=== PATIENT | female | born 1990 | race American Indian/Alaskan Native ===

== ENCOUNTER 2021-09-13 19:06 | Emergency (ER) | payer SELFPAY ==
[2021-09-13 20:12] LABS: Bacteria,Urine 1+ /HPF (Negative); Mucus,Urine FEW /HPF
[2021-09-13 20:27] LABS: Bilirubin,Urine Negative (Negative); Blood,Urine Negative (Negative); Color,Urine Yellow (Yellow); Urobilinogen,Urine < 2.0 mg/dL (<2.0)
[2021-09-14] MEDS ORDERED: ONDANSETRON 4 MG/2 ML INJ IV ONE (02:05)
[2021-09-14] MEDS ORDERED: SODIUM CHLORIDE 0.9% 1000 ML 1,000 ML IV ONE (02:05)
--- NOTE | 2021-09-14 02:17 | Emergency Department Report ---
ED Abdominal Pain HPI - General Chief Complaint: Abdominal Pain Stated Complaint: KIDNEY PAIN Time Seen by Provider: 09/14/21 02:04 Source: patient Mode of arrival: Ambulatory Limitations: No Limitations - History of Present Illness Initial Comments: Pleasant 30-year-old female who presents for left lateral flank pain with radiation to suprapubic x1 week. Symptoms include nausea vomiting chills urinary frequency. Last menstrual cycle was 3 weeks ago. Is been no fevers no chills Symptoms are exacerbated by movement and bending. Symptoms are relieved by nothing tried. Patient denies hematuria MD Complaint: flank pain - Related Data Allergies Allergy/AdvReac Type Severity Reaction Status Date / Time No Known Allergies Allergy Verified 09/13/21 19:48 ED Review of Systems ROS: Stated complaint: KIDNEY PAIN Other details as noted in HPI Constitutional: denies: chills, fever Eyes: denies: eye pain, eye discharge, vision change ENT: denies: ear pain, throat pain Respiratory: denies: cough, shortness of breath, wheezing Cardiovascular: denies: chest pain, palpitations Endocrine: no symptoms reported Gastrointestinal: abdominal pain, nausea, vomiting (Left flank). denies: diarrhea, constipation Genitourinary: denies: urgency, dysuria, discharge Musculoskeletal: back pain Skin: denies: rash, lesions Neurological: denies: headache, weakness, paresthesias, vertigo Psychiatric: denies: anxiety, depression Hematological/Lymphatic: denies: easy bleeding, easy bruising ED Physical Exam - General Limitations: No Limitations General appearance: alert, in no apparent distress - Head Head exam: Present: normocephalic, normal inspection - Eye Eye exam: Present: EOMI Pupils: Present: normal accommodation - ENT ENT exam: Present: mucous membranes moist - Neck Neck exam: Present: normal inspection, full ROM. Absent: tenderness - Respiratory Respiratory exam: Present: normal lung sounds bilaterally. Absent: respiratory distress, wheezes - Cardiovascular Cardiovascular Exam: Present: regular rate, normal rhythm, normal heart sounds. Absent: systolic murmur, diastolic murmur, rubs, gallop - GI/Abdominal GI/Abdominal exam: Present: soft, tenderness, normal bowel sounds. Absent: distended, guarding, rebound, rigid, bruit (Left flank), hernia - Rectal Rectal exam: Present: deferred - Extremities Exam Extremities exam: Present: normal inspection, full ROM, normal capillary refill - Back Exam Back exam: Present: full ROM, CVA tenderness (L). Absent: CVA tenderness (R) - Neurological Exam Neurological exam: Present: alert, oriented X3, CN II-XII intact - Expanded Neurological Exam Expanded Patient oriented to: Present: person, place, time Best Eye Response ([place]): (4) open spontaneously Best Motor Response ([place]): (6) obeys commands Best Verbal Response ([place]): (5) oriented [place] Total: 15 - Psychiatric Psychiatric exam: Present: normal affect, normal mood - Skin Skin exam: Present: warm, dry, intact, normal color. Absent: rash ED Course Vital Signs 09/13/21 19:43 Temperature 98.9 F Pulse Rate 119 H Respiratory 18 Rate Blood Pressure 141/96 O2 Sat by Pulse 100 Oximetry ED Medical Decision Making - Lab Data Result diagrams: 09/14/21 02:12 09/14/21 02:12 Labs 09/13/21 09/14/21 09/14/21 Unknown 02:12 02:12 WBC 4.5 RBC 4.06 Hgb 11.6 Hct 34.7 MCV 85 MCH 28 MCHC 33 RDW 12.5 L Plt Count 275 [place] % (Auto) [employer] Sodium 137 Potassium 4.2 Chloride 100.2 Carbon Dioxide 26 Anion Gap 15 BUN 15 Creatinine 0.4 L Estimated GFR > 60 BUN/Creatinine Ratio 38 Glucose 122 H Calcium 9.7 Total Bilirubin 0.20 AST 26 ALT 34 Alkaline Phosphatase 151 H Total Protein 5.8 L Albumin 3.7 L Albumin/Globulin Ratio 1.8 Urine Color Yellow Urine Turbidity Hazy Urine pH 5.0 Ur Specific [place] 1.020 Urine Protein 30 mg/dl Urine Glucose (UA) Negative Urine Ketones Negative Urine Blood Negative Urine Nitrite Negative Ur Reducing Substances Not Reportable Urine Bilirubin Negative Urine Ictotest Not Reportable Urine Urobilinogen < 2.0 Ur Leukocyte Esterase Negative Urine WBC (Auto) 2.0 Urine RBC (Auto) 2.0 U Epithel Cells (Auto) 11.0 Urine Bacteria (Auto) 1+ Urine Mucus Few - Medical Decision Making Patient advises symptoms are improved with medications given in ED, patient has completed course of antibiotics for UTI as prescribed by PCP.. Plan DC to home, continue to hydrate as directed. Follow-up with your primary care doctor in 2 to 3 days. Patient verbalized agreement and understanding with discharge plan. Patient DC'd home in stable condition at this time. Critical care attestation.: If time is entered above; I have spent that time in minutes in the direct care of this critically ill patient, excluding procedure time. ED Disposition Clinical Impression: Protein in urine Qualifiers: Proteinuria type: unspecified Qualified Code(s): R80.9 - Proteinuria, unspecified Disposition: 01 HOME / SELF CARE / HOMELESS Is pt being admited?: No Does the pt Need Aspirin: No Condition: Stable Instructions: Abdominal Pain (ED), Proteinuria Additional Instructions: Take all medications as prescribed by your primary care doctor. Hydrate as directed. Follow-up with your primary care doctor in 2 to 3 days. Return to emergency department should symptoms worsen. Referrals: JARAD NELSON MD [Staff Physician] - 3-5 Days Forms: Work/School Release Form(ED) Time of Disposition: 03:08
[2021-09-14 02:40] LABS: Hematocrit 34.7 % (30.3-42.9); Hemoglobin 11.6 gm/dl (10.1-14.3); Mean Corpuscular HGB Conc 33 % (30-34); Mean Corpuscular Volume 85 fl (79-97); Platelet Count 275 K/mm3 (140-440); Red Blood Count 4.06 M/mm3 (3.65-5.03); Red Cell Distribution Width 12.5 % (13.2-15.2)
[2021-09-14 02:58] LABS: Alanine Aminotransferase 34 units/L (7-56); Albumin 3.7 g/dL (3.9-5); Blood Urea Nitrogen 15 mg/dL (7-17); Calcium 9.7 mg/dL (8.4-10.2); Hemolysis Index 1
[2021-09-14 03:01] LABS: BUN/Creatinine Ratio 38
[2021-09-14 03:42] VITALS: BP 132/89
[2021-09-14 04:46] LABS: Basophils % (Manual) 0 % (0.0-1.8); Eosinophils % (Manual) 0 % (0.0-4.3); RBC Morphology Normal; Total Cells Counted 100
== END 2021-09-14 04:08 | disposition home or self-care (01) ==
LOC: ED 19:06
DX: R80.9 Proteinuria, unspecified (principal); R10.30 Lower abdominal pain, unspecified; R11.2 Nausea with vomiting, unspecified; R35.0 Frequency of micturition
CPT/HCPCS: 36415; 80053; 81001; 85007; 85025; 96361; 96374; 99283; J2405; J7030